=== PATIENT | male | born 1945 | race Caucasian/White ===

== ENCOUNTER 2016-06-21 11:18 | Day surgery (SDC) | payer MEDICARE, OTHER ==
[~2016-06-21 11:18] MED LIST: ACETAMINOPHEN 325 MG TABLET PO PRN; ACETYLCHOLINE CHLORIDE 20 DROP KIT IO PRN; BUPIVACAINE HCL/PF 30 ML VIAL IJ PRN; CYCLOPENTOLATE HCL 20 DROP BTL RIGHTEYE PRN; DEXTROSE 5%-0.5 NORMAL SALINE 1,000 ML IV PRN; EPINEPHrine 1 MG/ML AMPUL IO PRN; HYALURONATE SODIUM 0.4 ML DISP.SYRIN IO PRN; HYALURONATE SODIUM 0.85 ML DISP.SYRIN IO PRN; LIDOCAINE HCL/PF 200 MG/5 ML AMPUL TP PRN; LIDOCAINE HCL/PF 5 ML VIAL IO PRN; NORMAL SALINE 3 ML BOX IV PRN; TETRACAINE HCL 150 DROP BTL OP PRN
--- OUTSIDE RECORDS SUMMARY | 2016-06-21 11:24 | XMS REPORT | Continuity of Care Document ---
:1945 Author Organization [facility] [place] [address] Care Team Providers Name Role Phone Calvin Thorpe Primary Care Provider [phone] Source Comments This disclosure is being made pursuant to the [email or web address] program and maynot contain all information available regarding this patient.[facility] Active Allergies and Adverse Reactions No Known Allergies Current Medications Be aware that medications may not be up to date as of this document. Alwaysverify current medications with the patient. Prescription Sig. Disp. Refills Start Date End Date Status aspirin 325 MG tablet Take 325 mg by Active mouth daily. SOOLANTRA 1 % CREA Apply to face 30 g 2 11/07/2014 Active daily for rosacea. CRESTOR 40 MG tablet TAKE ONE TABLET 90 tablet 3 11/10/2015 Active BY MOUTH ONCE DAILY metoprolol tartrate TAKE ONE TABLET 180 tablet 0 03/29/2016 Active (LOPRESSOR) 25 MG BY MOUTH TWICE tablet DAILY Active Problems Problem Noted Date Nevus 11/11/2015 Lentigo 11/11/2015 Asteatosis cutis 11/07/2014 Diffuse photodamage of skin 11/07/2014 CAD (coronary artery disease) 07/30/2014 S/P CABG (coronary artery bypass graft) 07/30/2014 Family history of ischemic heart disease (IHD) 07/30/2014 HTN (hypertension) 07/30/2014 Hyperlipidemia 07/30/2014 Angina pectoris, unstable (HCC) 07/09/2014 Abnormal stress ECG 07/09/2014 Actinic keratosis 10/29/2011 Overview: Overview: ANDRIA GAY MD Inflamed seborrheic keratosis 11/12/2008 Overview: Overview: ANDRIA GAY MD Seborrheic keratosis 11/12/2008 Overview: Overview: ANDRIA GAY MD Lentigines 11/12/2008 Overview: Overview: MD Curtis BLUM 09/06/2008 Overview: Overview: ANDRIA GAY MD Most Recent Encounters Date Type Specialty Providers Description 05/14/2016 Orders Only Provider, Not In System 04/15/2016 Data Import 03/27/2016 Refill Cardiology Giuliana Gregorio MD Medication Refill 03/24/2016 Orders Only Cardiology Manjula De Anda, [place] Hyperlipidemia, unspecified hyperlipidemia type (Primary Dx) Social History Tobacco Use Types Packs/Day Years Used Date Former Smoker Smokeless Tobacco: Never Used Alcohol Use Drinks/Week oz/Week Comments No Last Filed Vital Signs Vital Sign Reading Time Taken Blood Pressure 122/68 07/02/2015 10:29 AM [employer] Pulse 62 07/02/2015 10:29 AM [employer] Temperature - - Respiratory Rate - - Height - - Weight 82.555 kg (182 lb) 07/02/2015 10:29 AM [employer] Body Mass Index - - Oxygen Saturation - - Plan of Care Patient Goal Type Goal Blood Pressure Blood Pressure below 140/90 Date Type Specialty Providers Description 06/30/2016 Appointment Cardiology Giuliana Gregorio MD [address] [place] [address] [phone] (Fax) 11/15/2016 Appointment Dermatology Andria Gay MD [address] [address] [phone] (Fax) Health Maintenance Due Date Last Done Comments Hepatitis C Screening 1963 Tetanus/Pertussis (1 - Tdap) 1965 Colonoscopy 1996 Well Adult Visit 1996 Zoster Vaccine 60+ 2006 AAA Screening (Medicare Covered) 08/12/2011 Pneumococcal Low/Medium Risk 65+ (1 of 2 - PCV13) 08/12/2011 Influenza Immunization (#1) 2016 Results from Last 3 Months Laboratory Miscellaneous (04/21/2016)Comprehensive metabolic panel (04/21/2016) PSA (04/21/2016) Component Value Range PSA 0.8 Narrative See scanned result 04/21/16 Lipid panel (04/21/2016) Component Value Range Cholesterol 175 mg/dL Triglycerides 121 mg/dL HDL 58 mg/dL LDL 93 mg/dL CBC auto differential (04/21/2016) Component Value Range WBC Count 4.1 10^3/mL RBC 4.79 10^6/L Hemoglobin 15.3 g/dL Hematocrit 45.5 % Platelets 198 K/L Specimen BLOOD Narrative See scanned result 04/21/16
[2016-06-21] MEDS: PHENYLEPHRINE HCL 50 DROP BTL RIGHTEYE PRN ×3 (12:09→12:46)
[2016-06-21] MEDS: TROPICAMIDE 150 DROP BTL RIGHTEYE PRN ×3 (12:09→12:46)
[2016-06-21 14:42] VITALS: BP 133/72
== END 2016-06-21 11:19 | disposition home or self-care (01) ==
LOC: AMB 11:18
PROVIDERS: ATTEND Ophthalmology
PROC: 08RJ3JZ Replacement of Right Lens with Synthetic Substitute, Percutaneous Approach (ICD-10-PCS; principal; 2016-06-21 12:40)
DX: H26.9 Unspecified cataract (principal); I10 Essential (primary) hypertension; I25.10 Atherosclerotic heart disease of native coronary artery without angina pectoris; M19.90 Unspecified osteoarthritis, unspecified site; F32.9 Major depressive disorder, single episode, unspecified; Z68.30 Body mass index [BMI] 30.0-30.9, adult